=== PATIENT | female | born 1995 | race Caucasian/White ===

== ENCOUNTER 2023-07-18 20:30 | Inpatient (IN) | payer OTHER ==
[2023-07-18] MEDS ORDERED: PROMETHAZINE HCL 25 MG/1 ML VIAL IVPB ONE (21:30)
[2023-07-18] MEDS ORDERED: BUTORPHANOL TARTRATE 1 MG/ML VIAL IVPB ONE (21:30)
[2023-07-18] MEDS ORDERED: DINOPROSTONE 10 MG VAGINAL SUPPOSITORY VG ONE (21:45)
[2023-07-18] MEDS: ELECTROLYTE-148 SOLN 1,000 ML IV SCH (22:20)
[2023-07-18 22:49] LABS: BASO % 0.2 % (0-2.0); EOS % 0.8 % (0-4.5); HEMATOCRIT 36.6 % (32.4-45.2); HEMOGLOBIN 12.6 GM/dL (10.7-15.3); MCH 28.6 pg (25.7-33.7); MCHC 34.5 g/dl (32.0-36.0); MEAN CELL VOLUME 83.1 fl (80-96); MEAN PLT VOLUME 9.5 fl (7.5-11.1); MONO % 5.5 % (3.8-10.2); NEUT % 69.5 % (42.8-82.8); PLATELET COUNT 186 10^3/uL (134-434); RDW 13.2 % (11.6-15.6); WHITE BLOOD COUNT 11.2 K/mm3 (4.0-10.0)
[2023-07-18 22:50] VITALS: BMI 37.8
[2023-07-18 22:55] LABS: INR 0.96 (0.83-1.09); PROTHROMBIN TIME (PATIENT) 11.1 SEC (9.7-13.0)
[2023-07-18 23:12] LABS: POTASSIUM 3.7 mmol/L (3.5-5.1)
[2023-07-18 23:13] LABS: CALCIUM 8.3 mg/dL (8.5-10.1)
[2023-07-18 23:14] LABS: BLOOD UREA NITROGEN 6.4 mg/dL (7-18)
[2023-07-18 23:18] LABS: CREATININE 0.5 mg/dL (0.55-1.3)
[2023-07-19 00:25] LABS: SYPHILIS W/ RPR CONF NON-REACTIVE (NONREACTIVE)
[2023-07-19 00:53] LABS: HIV INTERPRETATION NEGATIVE (NEGATIVE)
[2023-07-19] MEDS ORDERED: BUTORPHANOL TARTRATE 1 MG/ML VIAL ONE (03:47)
[2023-07-19] MEDS ORDERED: PROMETHAZINE HCL 25 MG/1 ML VIAL ONE (03:47)
[2023-07-19] MEDS ORDERED: OXYTOCIN 30 UNITS in 0.9% NS 30 UNIT/500 ML INFUS.BAG IVPB SCH (09:00)
[2023-07-19] MEDS ORDERED: FENTANYL/BUPIVACAINE/NS/PF - PCEA - 50 ML DISP.SYRIN EP ONE ×3 (09:34→16:15)
[2023-07-19] MEDS ORDERED: LIDO 2%/EPI 1:200000 PRESRVFRE (20 ML SDVIAL) ONE ×2 (09:39→17:18)
[2023-07-19] MEDS ORDERED: BUPIVACAINE HCL/PF 0.25% (2.5MG/ML) 10 ML VIAL ONE ×2 (09:39→16:36)
[2023-07-19] MEDS: FENTANYL/BUPIVACAINE/NS/PF - PCEA - 50 ML DISP.SYRIN EP SCH ×2 (09:50→14:02)
[2023-07-19] MEDS ORDERED: NALOXONE HCL 0.4 MG/ML VIAL IVPUSH PRN (09:58)
[2023-07-19] MEDS: ELECTROLYTE-148 SOLN 1,000 ML IV SCH (11:00)
[2023-07-19] MEDS ORDERED: OXYTOCIN 30 UNITS in 0.9% NS 30 UNIT/500 ML INFUS.BAG IVPB ONE (11:01)
[2023-07-19] MEDS ORDERED: FENTANYL CITRATE/PF 50 MCG/ML VIAL ONE ×2 (16:35→17:20)
[2023-07-19] MEDS: PARoxetine HCL 10 MG TABLET PO SCH ×2 (17:04→21:00)
[2023-07-19] MEDS ORDERED: CITRIC ACID/SODIUM CITRATE 30 ML UNIT-DOSE CUP PO ONE (17:27)
[2023-07-19] MEDS ORDERED: DEXTROSE 5%-LACTATED RINGERS 1,000 ML IV SCH (17:30)
[2023-07-19] MEDS ORDERED: ONDANSETRON 4 MG/2 ML VIAL ONE (17:51)
[2023-07-19] MEDS ORDERED: KETOROLAC TROMETHAMINE 30 MG/1 ML VIAL ONE (17:51)
[2023-07-19] MEDS ORDERED: ePHEDrine SULFATE 50 MG/1 ML AMPULE ONE (17:51)
[2023-07-19] MEDS ORDERED: ceFAZolin SODIUM 1 GM VIAL ONE (17:51)
[2023-07-19] MEDS ORDERED: morphine SULFATE/PF 1 MG/2 ML (2cc Syringe - QUVA) ONE (17:51)
[2023-07-19] MEDS ORDERED: SODIUM CHLORIDE 0.9% P/F 10 ML VIAL IJ ONE ×2 (17:51→17:53)
[2023-07-19] MEDS ORDERED: PHENYLEPHRINE HCL 10 MG/1 ML SINGLE DOSE VIAL ONE (17:57)
[2023-07-19] MEDS ORDERED: OXYTOCIN 20 UNITS in 0.9% NS 20 UNIT/1,000 ML INFUS.BAG IV ONE ×2 (18:00→19:33)
[2023-07-19] MEDS ORDERED: morphine SULFATE/PF 1 MG/2 ML (2cc Syringe - QUVA) EP ONE (18:45)
[2023-07-19] MEDS ORDERED: METHYLERGONOVINE MALEATE 0.2 MG/1 ML AMP IM PRN (19:21)
[2023-07-19] MEDS ORDERED: SENNOSIDES/DOCUSATE COMBO (SENNA PLUS) TABLET (UD) PO PRN (19:21)
[2023-07-19] MEDS ORDERED: IBUPROFEN 800 MG/8 ML IJ IVPB PRN (19:21)
[2023-07-19] MEDS ORDERED: ONDANSETRON 4 MG/2 ML VIAL IVPUSH PRN (19:23)
[2023-07-19] MEDS ORDERED: ACETAMINOPHEN 1000 MG/100 ML BAG IVPB PRN (19:26)
[2023-07-19] MEDS: OXYTOCIN 20 UNITS in 0.9% NS 20 UNIT/1,000 ML INFUS.BAG IV SCH (19:41)
[2023-07-19] MEDS ORDERED: ACETAMINOPHEN INJECTION 100 ML IVPB ONE (19:43)
[2023-07-20] MEDS: OXYTOCIN 20 UNITS in 0.9% NS 20 UNIT/1,000 ML INFUS.BAG IV SCH (04:21)
[2023-07-20] MEDS: SIMETHICONE 80 MG TAB.CHEW (FP) PO PRN ×2 (06:13→15:24)
[2023-07-20 06:52] LABS: BASO % 0.2 % (0-2.0); EOS % 0.2 % (0-4.5); HEMATOCRIT 31.3 % (32.4-45.2); HEMOGLOBIN 10.6 GM/dL (10.7-15.3); MCHC 33.9 g/dl (32.0-36.0); MEAN CELL VOLUME 85.7 fl (80-96); MEAN PLT VOLUME 10.2 fl (7.5-11.1); MONO % 5.8 % (3.8-10.2); NEUT % 76.8 % (42.8-82.8); PLATELET COUNT 144 10^3/uL (134-434); RBC 3.66 M/mm3 (3.60-5.2); RDW 13.2 % (11.6-15.6); WHITE BLOOD COUNT 16.5 K/mm3 (4.0-10.0)
[2023-07-20] MEDS ORDERED: oxyCODONE HCL 5 MG TABLET PO PRN ×2 (07:21)
[2023-07-20] MEDS: PARoxetine HCL 10 MG TABLET PO SCH (10:15)
[2023-07-20] MEDS: PRENATAL VITAMINS W/ FOLIC ACID TABLET (FP) PO SCH (10:15)
[2023-07-20] MEDS: FERROUS SO4 325 MG TABLET (FP) PO SCH ×2 (10:15→22:01)
[2023-07-20] MEDS: FAMOTIDINE 20 MG TABLET PO SCH ×2 (11:25→22:01)
[2023-07-20] MEDS: IBUPROFEN 600 MG TABLET (FP) PO PRN ×2 (15:23→22:02)
[2023-07-20] MEDS: ACETAMINOPHEN 325 MG TABLET (FP) PO PRN (17:06)
[2023-07-20] MEDS ORDERED: BISACODYL 10 MG SUPP.RECT RC PRN (19:21)
[2023-07-21] MEDS: IBUPROFEN 600 MG TABLET (FP) PO PRN ×3 (07:45→21:34)
[2023-07-21] MEDS: SIMETHICONE 80 MG TAB.CHEW (FP) PO PRN ×3 (07:45→21:33)
[2023-07-21] MEDS: PARoxetine HCL 10 MG TABLET PO SCH (09:53)
[2023-07-21] MEDS: PRENATAL VITAMINS W/ FOLIC ACID TABLET (FP) PO SCH (09:53)
[2023-07-21] MEDS: FERROUS SO4 325 MG TABLET (FP) PO SCH ×2 (09:53→21:34)
[2023-07-21] MEDS: FAMOTIDINE 20 MG TABLET PO SCH ×2 (09:55→21:35)
[2023-07-21] MEDS: ACETAMINOPHEN 325 MG TABLET (FP) PO PRN (12:19)
[2023-07-22] MEDS: SIMETHICONE 80 MG TAB.CHEW (FP) PO PRN (03:58)
[2023-07-22] MEDS: IBUPROFEN 600 MG TABLET (FP) PO PRN ×2 (03:58→08:14)
[2023-07-22 08:56] VITALS: BP 120/78; PULSE 71; RESP 17; TEMP 97.8
[2023-07-22] MEDS: FAMOTIDINE 20 MG TABLET PO SCH (10:30)
[2023-07-22] MEDS: FERROUS SO4 325 MG TABLET (FP) PO SCH (10:35)
[2023-07-22] MEDS: PARoxetine HCL 10 MG TABLET PO SCH (10:35)
[2023-07-22] MEDS: PRENATAL VITAMINS W/ FOLIC ACID TABLET (FP) PO SCH (10:35)
== END 2023-07-22 12:25 | disposition home or self-care (01) | DRG 540 ==
LOC: JLDR 20:30 → J3W 07-19 21:40
PROVIDERS: ADMIT Obstetrics & Gynecology; ATTEND Obstetrics & Gynecology
PROC: 10D00Z1 Extraction of Products of Conception, Low, Open Approach (ICD-10-PCS; principal; 2023-07-19)
DX: O48.0 Post-term pregnancy (principal); O61.8 Other failed induction of labor; O69.1XX0 Labor and delivery complicated by cord around neck, with compression, not applicable or unspecified; Z3A.41 41 weeks gestation of pregnancy; Z37.0 Single live birth
CPT/HCPCS: 36415; 80048; 85025; 85610; 85730; 86780; 86850; 86900; 86901; 87389; 88307-TC; 94010